=== PATIENT | female | born 1970 | race Caucasian/White ===

== ENCOUNTER 2018-04-20 11:03 | Emergency (ER) | payer SELFPAY ==
[2018-04-20 11:08] VITALS: BP 124/82
--- NOTE | 2018-04-20 11:49 | ER Document Report ---
ED Extremity Problem, Upper - General Chief Complaint: Shoulder Injury Stated Complaint: ARM PAIN Time Seen by Provider: 04/20/18 11:16 Mode of Arrival: Ambulatory Information source: Patient Notes: 47-year-old female presented to ED for complaint of left shoulder pain times 2 days. She states she was in the ER and she stepped in a hole on Tuesday and her son who is 19 years old fell on top of her. She states that the pain was so bad yesterday that every time she started to get up she would get lightheaded and dizzy and nauseated so she stayed in the bed and did not come to the doctor's office. She states today she is finally able to get up and move around she is no longer nauseated or dizzy but the pain is severe in her humerus. She is full range of motion to the shoulder as long as the arm is held and she has full range of motion to the elbow and hand as long as the arm is held. Patient is alert and oriented respirations regular and unlabored speaking in full sentences and is able to walk with a even steady gait. Patient states she took a half of 05/325 Percocet before coming to the emergency room. TRAVEL OUTSIDE OF THE [place] IN LAST 30 DAYS: No - HPI Patient complains to provider of: Left, Arm Onset: Other - Tuesday Recent injury: Yes Where: Home, Outdoors Quality of pain: Sharp, Stabbing Severity of pain: Severe Pain Level: 5 Associated symptoms: Other - Rib pain left humerus was making her nauseated and dizzy yesterday not today Exacerbated by: Movement, Exertion Relieved by: Nothing Similar symptoms previously: No Recently seen / treated by doctor: No - Related Data Allergies/Adverse Reactions: No Known Allergies Allergy (Verified 02/09/16 08:44) Past Medical History - General Information source: Patient - Social History Smoking Status: Current Every Day Smoker Cigarette use (# per day): Yes - 1/2 pack/day Chew tobacco use (# tins/day): No Smoking Education Provided: Yes - 4 minutes Frequency of alcohol use: Occasional Drug Abuse: None Lives with: Family Family History: Reviewed & Not Pertinent Patient has suicidal ideation: No Patient has homicidal ideation: No - Past Medical History Cardiac Medical History: Reports: Hx Hypercholesterolemia, Hx Hypertension Pulmonary Medical History: Reports: None EENT Medical History: Reports: None Neurological Medical History: Reports: None Endocrine Medical History: Reports: None Renal/ Medical History: Reports: Hx Ovarian Cysts Malignancy Medical History: Reports: Hx Cervical Cancer GI Medical History: Reports: None Musculoskeletal Medical History: Reports Hx Musculoskeletal Trauma Skin Medical History: Reports None Psychiatric Medical History: Reports: None Traumatic Medical History: Reports: None Infectious Medical History: Reports: None Past Surgical History: Reports: Hx Hysterectomy - Immunizations Hx Diphtheria, Pertussis, Tetanus Vaccination: Yes Review of Systems - Review of Systems Constitutional: No symptoms reported EENT: No symptoms reported Cardiovascular: No symptoms reported Respiratory: No symptoms reported Gastrointestinal: No symptoms reported Genitourinary: No symptoms reported Female Genitourinary: No symptoms reported Musculoskeletal: Other - Severe left humerus pain bruising swelling Skin: No symptoms reported Hematologic/Lymphatic: No symptoms reported Neurological/Psychological: No symptoms reported -: Yes All other systems reviewed and negative Physical Exam - Vital signs Vitals: Temp Pulse Resp BP Pulse Ox 98.7 F 103 H 14 124/82 95 04/20/18 11:07 04/20/18 11:07 04/20/18 11:07 04/20/18 11:07 04/20/18 11:07 Interpretation: Normal - General General appearance: Appears well, Alert - HEENT Head: Normocephalic, Atraumatic Eyes: Normal Pupils: PERRL - Respiratory Respiratory status: No respiratory distress Chest status: Tender - Left clavicle, Ecchymosis Breath sounds: Normal Chest palpation: Normal - Cardiovascular Rhythm: Regular Heart sounds: Normal auscultation Murmur: No - Abdominal Inspection: Normal Distension: No distension Bowel sounds: Normal Tenderness: Nontender Organomegaly: No organomegaly - Back Back: Normal, Nontender - Extremities General upper extremity: Normal ROM, Normal temperature General lower extremity: Normal inspection, Nontender, Normal color, Normal ROM, Normal temperature, Normal weight bearing. No: Deniz's sign Shoulder: Normal, Nontender Arm: Tender, Ecchymosis, Other - Swelling Elbow: Normal, Nontender Forearm: Normal, Nontender Wrist: Normal, Nontender Hand: Normal, Nontender - Neurological Neuro grossly intact: Yes Cognition: Normal Orientation: AAOx4 [place] Coma Scale Eye Opening: Spontaneous [place] Coma Scale Verbal: Oriented [place]ais[place] Coma Scale Motor: Obeys Commands Faisal Coma Scale Total: 15 Speech: Normal Motor strength normal: LUE, RUE, LLE, RLE Sensory: Normal - Psychological Associated symptoms: Normal affect, Normal mood - Skin Skin Temperature: Warm Skin Moisture: Dry Skin Color: Normal Course - Re-evaluation Re-evalutation: 04/20/18 12:[address] Hendricks concerning this fractured humerus. He stated the patient should be put in a shoulder immobilizer given pain medication call the office in the morning for a follow-up appointment. Patient was given instructions concerning shoulder immobilizer or narcotics and follow-up with orthopedics. She was also given instructions concerning ice and ibuprofen. Patient will be discharged home to follow-up as instructed. Patient states she is also going to follow-up with her primary doctor. - Vital Signs Vital signs: Temp Pulse Resp BP Pulse Ox 98.7 F 103 H 14 124/82 95 04/20/18 11:07 04/20/18 11:07 04/20/18 11:07 04/20/18 11:07 04/20/18 11:07 - Diagnostic Test Radiology reviewed: Image reviewed, Reports reviewed Procedures - Immobilization Left Shoulder Time completed: 11:45 Immobilizer type: Shoulder immobilizer - Changed to immobilizer at 1224, Sling Performed by: PCT Post-Proc Neuro Vasc Exam: Normal Alignment checked and good: Yes Discharge - Discharge Clinical Impression: Fracture of neck of left humerus Qualifiers: Encounter type: initial encounter Fracture type: closed Qualified Code(s): S42.212A - Unspecified displaced fracture of surgical neck of left humerus, initial encounter for closed fracture Fall Qualifiers: Encounter type: initial encounter Qualified Code(s): W19.XXXA - Unspecified fall, initial encounter Condition: Stable Disposition: HOME, SELF-CARE Additional Instructions: Fracture Proximal Humerus There is a fracture at the upper end of the humerus, near the shoulder joint. Your physician has assessed the fracture's severity and has determined that it will heal well without surgery or "setting." The typical shoulder fracture doesn't need a cast. It's best treated by binding the arm down with a special sling. Ice packs are used to reduce pain and swelling. After early healing has occurred, [id number] exercises are prescribed for the shoulder. Complete healing may take three to six weeks, depending on the age of the patient and the severity of the fracture. Call the doctor or return at once if the arm becomes numb, or if pain or swelling become severe. Shoulder immobilizer to be Used You are to use a shoulder immobilizer. This is to rest the area, and to prevent it from hanging downward. Use this sling for at least 48 hours (or longer if so instructed by the doctor). Some types of splints will break if not supported by the sling, so the Shoulder immobilizermust be used as long as the splint. Ice can be placed inside the Shoulder immobilizer over the injured area. Oral Narcotic Medication You have been given a prescription for pain control. This medication is a narcotic. It's best taken with food, as nausea can result if taken on an empty stomach. Don't operate machinery or drive within six hours of taking this medication. Do not combine this medicine with alcohol, or with any medication which can cause sedation (such as cold tablets or sleeping pills) unless you get permission from the physician. Narcotics tend to cause constipation. If possible, drink plenty of fluids and eat a diet high in fiber and fruits. Ice Packs Apply ice packs frequently against the painful area. Many different schedules are recommended, such as "20 minutes on, 20 minutes off" or "one hour ice, two hours rest." If you need to work, you may need to go longer between ice treatments. You should plan to have the area ice packed AT LEAST one fourth of the time. The ice should be applied over the wrap, tape, or splint, or over a layer of cloth -- not directly against the skin. Some ice bags have a built-in cloth and can be put directly on the skin. FOLLOW-UP CARE: If you have been referred to a physician for follow-up care, call the physicians office for an appointment as you were instructed or within the next two days. If you experience worsening or a significant change in your symptoms, notify the physician immediately or return to the Emergency Department at any time for re-evaluation. Prescriptions: Oxycodone HCl/Acetaminophen [Percocet 5-325 mg Tablet] 1 tab PO Q6HP PRN #15 tablet PRN Reason: Forms: Return to Work Referrals: KAMINI CARPOI MD [Primary Care Provider] - Follow up as needed ABHINAV PADRON MD [ACTIVE STAFF] - Follow up as needed
[2018-04-20] MEDS ORDERED: OXYCODONE-ACETAMINOPHEN 5-325 MG TABLET PO ONE (12:19)
--- NOTE | 2018-04-20 12:22 | RADIOLOGY REPORT (SQ) ---
EXAM DESCRIPTION: HUMERUS LEFT COMPLETED DATE/TIME: 04/20/2018 12:12 pm REASON FOR STUDY: fall pain COMPARISON: None. NUMBER OF VIEWS: Two views. TECHNIQUE: Two radiographic images were acquired of the left humerus to include elbow and shoulder i n at least one projection. LIMITATIONS: None. FINDINGS: MINERALIZATION: Normal. BONES: Mildly displaced and impacted fracture of the humeral neck. SOFT TISSUES: No obvious swelling or foreign body. OTHER: No other significant finding. IMPRESSION: FRACTURE OF THE HUMERAL NECK. TECHNICAL DOCUMENTATION: JOB ID: [id number] [employer]- All Rights Reserved Reading location - IP/workstation name: [email or web address]
--- NOTE | 2018-04-20 12:24 | RADIOLOGY REPORT (SQ) ---
EXAM DESCRIPTION: SHOULDER LEFT 2 OR MORE VIEWS COMPLETED DATE/TIME: 04/20/2018 12:13 pm REASON FOR STUDY: fall pain COMPARISON: None. NUMBER OF VIEWS: Two views. TECHNIQUE: Internal rotation and Y view images acquired of the left shoulder. LIMITATIONS: None. FINDINGS: MINERALIZATION: Normal. BONES: Comminuted impacted fracture of the humeral neck which probably involves the greater tuberosit y as well. No dislocation. JOINTS: No dislocation. VISUALIZED LUNGS AND RIBS: No pneumothorax. No rib fracture. SOFT TISSUES: No radiopaque foreign body. OTHER: No other significant finding. IMPRESSION: COMMINUTED IMPACTED FRACTURE OF THE HUMERAL NECK WHICH PROBABLY INVOLVES THE GREATER TUB EROSITY WELL. TECHNICAL DOCUMENTATION: JOB ID: [id number] [employer]- All Rights Reserved Reading location - IP/workstation name: [email or web address]
== END 2018-04-20 12:54 | disposition home or self-care (01) ==
LOC: ER 11:03
DX: S42.212A Unspecified displaced fracture of surgical neck of left humerus, initial encounter for closed fracture (principal); W17.2XXA Fall into hole, initial encounter; Y92.009 Unspecified place in unspecified non-institutional (private) residence as the place of occurrence of the external cause; F17.210 Nicotine dependence, cigarettes, uncomplicated
CPT/HCPCS: 99406; 99283; 73060; 73030; L3650

== ENCOUNTER 2019-04-16 13:22 | Emergency (ER) | payer SELFPAY ==
--- NOTE | 2019-04-16 16:28 | ER Document Report ---
ED Medical Screen (RME) - General Chief Complaint: Vaginal Discharge Stated Complaint: BLOODY STOOL Time Seen by Provider: 04/16/19 16:21 Primary Care Provider: KAMINI CARPIO MD [Primary Care Provider] - Follow up as needed Mode of Arrival: Ambulatory Information source: Patient Notes: 48-year-old female with history of vaginal cancer presents today with complaints of rectal bleeding for the past month with 2 large clots today. She also reports her vaginal area has been hurting for the past 3 to 4 months. Reports less radiation treatment was at the end of 2018. Reports she just followed up with her oncologist 3 to 4 months ago. No other complaints such as fever vomiting diarrhea. Reports she does have cold chills at times. I have greeted and performed a rapid initial assessment of this patient. A comprehensive ED assessment and evaluation of the patient, analysis of test results and completion of the medical decision making process will be conducted by additional ED providers. Dictation of this chart was performed using voice recognition software; therefore, there may be some unintended grammatical errors. TRAVEL OUTSIDE OF THE [place] IN LAST 30 DAYS: No - Related Data Allergies/Adverse Reactions: No Known Allergies Allergy (Verified 02/09/16 08:44) Past Medical History - Past Medical History Cardiac Medical History: Reports: Hx Hypercholesterolemia, Hx Hypertension Renal/ Medical History: Reports: Hx Ovarian Cysts. Denies: Hx Peritoneal Dialysis Malignancy Medical History: Reports: Hx Cervical Cancer Musculoskeltal Medical History: Reports Hx Musculoskeletal Trauma Past Surgical History: Reports: Hx Hysterectomy - Immunizations Hx Diphtheria, Pertussis, Tetanus Vaccination: Yes Physical Exam - Vital signs Vitals: Temp Pulse Resp BP Pulse Ox 98.3 F 92 16 142/83 H 97 04/16/19 13:40 04/16/19 13:40 04/16/19 13:40 04/16/19 13:40 04/16/19 13:40 Course - Vital Signs Vital signs: Temp Pulse Resp BP Pulse Ox 98.3 F 92 16 142/83 H 97 04/16/19 16:21 04/16/19 13:40 04/16/19 16:21 04/16/19 13:40 04/16/19 16:21 Doctor's Discharge - Discharge Referrals: KAMINI CARPIO MD [Primary Care Provider] - Follow up as needed
[2019-04-16 18:26] LABS: ABSOLUTE EOSINOPHILS # (AUTO) 0.1 10^3/uL (0.0-0.6); ABSOLUTE MONOCYTES (AUTO) 0.5 10^3/uL (0.1-1.4); ABSOLUTE NEUT (AUTO) 6.6 10^3/uL (1.7-8.2); BASOPHILS % (AUTO) 0.5 % (0-2); EOSINOPHILS % (AUTO) 0.9 % (0-6); HEMATOCRIT 39.4 % (36.0-47.0); HEMOGLOBIN 13.7 g/dL (12.0-15.5); MEAN CORPUSCULAR HGB CONC 34.8 g/dL (32.0-36.0); MEAN CORPUSCULAR VOLUME 98 fl (80-97); MONOCYTES % (AUTO) 5.7 % (3-13); PLATELET COUNT 326 10^3/uL (150-450); RED BLOOD COUNT 4.03 10^6/uL (3.72-5.28); RED CELL DISTRIBUTION WIDTH 13.8 % (11.5-14.0); SEGMENTED NEUTROPHILS % (AUTO) 80.9 % (42-78); TOTAL CELLS COUNTED % (AUTO) 100 %; WHITE BLOOD COUNT 8.2 10^3/uL (4.0-10.5)
[2019-04-16 18:32] LABS: APPEARANCE,URINE CLEAR; BILIRUBIN,URINE NEGATIVE (NEGATIVE); COLOR,URINE YELLOW; GLUCOSE, URINE NEGATIVE (NEGATIVE); KETONES,URINE 20 mg/dL (NEGATIVE); LEUKOCYTE ESTERASE,URINE MODERATE (NEGATIVE); NITRITE,URINE NEGATIVE (NEGATIVE); PROTEIN,URINE NEGATIVE (NEGATIVE); URINE SPECIFIC GRAVITY 1.008; UROBILINOGEN,URINE NEGATIVE mg/dL (<2.0)
[2019-04-16 18:51] LABS: ALBUMIN 4.6 g/dL (3.5-5.0); ALKALINE PHOSPHATASE 130 U/L (38-126); ANION GAP 13 (5-19); ASPARTATE AMINO TRANSFERASE 27 U/L (14-36); BILIRUBIN,DIRECT 0.3 mg/dL (0.0-0.4); BILIRUBIN,TOTAL 0.6 mg/dL (0.2-1.3); BLOOD UREA NITROGEN 9 mg/dL (7-20); CALCIUM 9.8 mg/dL (8.4-10.2); CARBON DIOXIDE 30 mmol/L (22-30); CHLORIDE 98 mmol/L (98-107); GLUCOSE 79 mg/dL (75-110); POTASSIUM 4.1 mmol/L (3.6-5.0); TOTAL PROTEIN 7.7 g/dL (6.3-8.2)
[2019-04-16 21:13] VITALS: BP 141/89
--- NOTE | 2019-04-16 21:18 | ER Document Report ---
ED GI Bleed / Rectal Pain - General Chief Complaint: Vaginal Discharge Stated Complaint: BLOODY STOOL Time Seen by Provider: 04/16/19 16:21 Primary Care Provider: KAMINI CARPIO MD [Primary Care Provider] - Follow up as needed Mode of Arrival: Ambulatory Notes: 48-year-old woman presents to the emergency department with episode of in her stools. She had one episode early this morning and a second episode which followed when she went to the bathroom. She described a trickle of blood and during the second episode 2 tiny clots. Denies pain in the rectal area. She has had chemo and radiation for vaginal related neoplastic illness. States that she has been in remission for approximately 1 year. She denies dizziness lightheadedness or tachycardia. She has been in the emergency department for approximately 7 hours and has had no further episodes of bleeding. TRAVEL OUTSIDE OF THE [place] IN LAST 30 DAYS: No - Related Data Allergies/Adverse Reactions: No Known Allergies Allergy (Verified 02/09/16 08:44) Past Medical History - General Information source: Patient - Social History Smoking Status: Unknown if Ever Smoked Family History: Reviewed & Not Pertinent Patient has suicidal ideation: No Patient has homicidal ideation: No - Past Medical History Cardiac Medical History: Reports: Hx Hypercholesterolemia, Hx Hypertension Renal/ Medical History: Reports: Hx Ovarian Cysts. Denies: Hx Peritoneal Dialysis Malignancy Medical History: Reports: Hx Cervical Cancer Musculoskeletal Medical History: Reports Hx Musculoskeletal Trauma Past Surgical History: Reports: Hx Hysterectomy - Immunizations Hx Diphtheria, Pertussis, Tetanus Vaccination: Yes Review of Systems - Review of Systems Notes: Constitutional: Negative for fever. HENT: Negative for sore throat. Eyes: Negative for visual changes. Cardiovascular: Negative for chest pain. Respiratory: Negative for shortness of breath. Gastrointestinal: + Rectal bleeding, no abdominal pain Genitourinary: Negative for dysuria. Musculoskeletal: Negative for back pain. Skin: Negative for rash. Neurological: Negative for headaches, weakness or numbness. 10 point ROS negative except as marked above and in HPI. Physical Exam - Vital signs Vitals: Temp Pulse Resp BP Pulse Ox 98.3 F 92 16 142/83 H 97 04/16/19 13:40 04/16/19 13:40 04/16/19 13:40 04/16/19 13:40 04/16/19 13:40 - Notes Notes: PHYSICAL EXAMINATION: Physical Exam: General: Well-nourished well-developed in no acute distress HEENT: NC/AT, pupils equal round and reactive to light, MM moist,nares clear, Neck: supple, no adenopathy, no masses. Lungs: clear, no wheezing, no rales no rhonchi CVS: Regular rate and rhythm no murmur gallop or rub Abdomen: Soft active nontender, no masses, no hepatosplenomegaly Rectal: + External hemorrhoid at the 12:00 . Base of the hemorrhoid which is clotted blood. No active hemorrhaging. Ext: No edema clubbing or cyanosis. Neuro: Alert and responsive, moving all 4 extremities on command, cranial nerves intact. Skin: Intact no open lesions, no rash PSYCH: Normal mood, normal affect. Course - Re-evaluation Re-evalutation: 04/16/19 21:16 Rectal bleeding, likely source hemorrhoidal, 48-year-old woman, history of ra diation and chemotherapy. I have suggested that she follow-up with her primary care doctor for GI referral. Hemodynamically stable and H&H is stable. Urine reveals significant pyuria she is given a prescription for Macrobid. Patient will follow-up with her primary care doctor and she acknowledges an understanding of that plan and is in agreement. - Vital Signs Vital signs: Temp Pulse Resp BP Pulse Ox 98.3 F 92 16 142/83 H 97 04/16/19 16:21 04/16/19 13:40 04/16/19 16:21 04/16/19 13:40 04/16/19 16:21 - Laboratory Result Diagrams: 04/16/19 17:10 04/16/19 17:10 Laboratory results interpreted by me: 04/16/19 04/16/19 04/16/19 17:10 17:10 17:10 MCV 98 H MCH 34.0 H Lymph % (Auto) 12.0 L Seg Neutrophils % 80.9 H Creatinine 0.48 L Alkaline Phosphatase 130 H Urine Ketones 20 H Ur Leukocyte Esterase MODERATE H Discharge - Discharge Clinical Impression: Rectal bleeding, Urinary tract infection Condition: Good Disposition: HOME, SELF-CARE Instructions: Nitrofurantoin ([facility]), Urinary Tract Infection ([facility]), Rectal Bleeding, Unclear Cause ([facility]), Urinary Tract Infection, Child ([facility]) Referrals: KAMINI CARPIO MD [Primary Care Provider] - Follow up as needed
== END 2019-04-16 21:23 | disposition home or self-care (01) ==
LOC: ER 13:22
DX: K62.5 Hemorrhage of anus and rectum (principal); K64.4 Residual hemorrhoidal skin tags; N39.0 Urinary tract infection, site not specified; I10 Essential (primary) hypertension; Z92.3 Personal history of irradiation; Z92.21 Personal history of antineoplastic chemotherapy; Z85.41 Personal history of malignant neoplasm of cervix uteri
CPT/HCPCS: 36415; 80053; 81001; 85025; 99284

== ENCOUNTER 2019-07-27 14:15 | Emergency (ER) | payer SELFPAY ==
[2019-07-27] MEDS ORDERED: NORMAL SALINE 1000 ML 1,000 ML IV ONE (14:32)
--- NOTE | 2019-07-27 14:33 | ER Document Report ---
ED Medical Screen (RME) - General Chief Complaint: Vaginal Discharge Stated Complaint: VAGINAL DISCHARGE Time Seen by Provider: 07/27/19 14:23 Primary Care Provider: KAMINI CARPIO MD [Primary Care Provider] - Follow up as needed Information source: Patient Notes: Patient presents complaining of diarrhea in which she is having stool from both the rectum and the vaginal area. Patient denies any abdominal tenderness or back pain. Patient denies any dysuria symptoms. Patient does report a previous history of vaginal cancer that was treated with chemotherapy and radiation treatment 2 years ago. I have greeted and performed a rapid initial assessment of this patient. A comprehensive ED assessment and evaluation of the patient, analysis of test results and completion of the medical decision making process will be conducted by additional ED providers. TRAVEL OUTSIDE OF THE [place] IN LAST 30 DAYS: No - Related Data Allergies/Adverse Reactions: No Known Allergies Allergy (Verified 02/09/16 08:44) Past Medical History - Past Medical History Cardiac Medical History: Reports: Hx Hypercholesterolemia, Hx Hypertension Renal/ Medical History: Reports: Hx Ovarian Cysts. Denies: Hx Peritoneal Dialysis Malignancy Medical History: Reports: Hx Cervical Cancer Musculoskeltal Medical History: Reports Hx Musculoskeletal Trauma Past Surgical History: Reports: Hx Hysterectomy - Immunizations Hx Diphtheria, Pertussis, Tetanus Vaccination: Yes Physical Exam - Vital signs Vitals: Temp Pulse Resp BP Pulse Ox 98.1 F 106 H 18 134/92 H 97 07/27/19 14:16 07/27/19 14:16 07/27/19 14:16 07/27/19 14:16 07/27/19 14:16 - General General appearance: Appears well, Alert In distress: None Course - Vital Signs Vital signs: Temp Pulse Resp BP Pulse Ox 98.1 F 106 H 18 134/92 H 97 07/27/19 14:16 07/27/19 14:16 07/27/19 14:16 07/27/19 14:16 07/27/19 14:16 Doctor's Discharge - Discharge Referrals: KAMINI CARPIO MD [Primary Care Provider] - Follow up as needed
[2019-07-27 15:16] LABS: ABSOLUTE BASOPHILS # (AUTO) 0.1 10^3/uL (0.0-0.2); ABSOLUTE EOSINOPHILS # (AUTO) 0.1 10^3/uL (0.0-0.6); ABSOLUTE MONOCYTES (AUTO) 0.6 10^3/uL (0.1-1.4); ABSOLUTE NEUT (AUTO) 8.4 10^3/uL (1.7-8.2); BASOPHILS % (AUTO) 0.6 % (0-2); EOSINOPHILS % (AUTO) 0.9 % (0-6); HEMATOCRIT 43.5 % (36.0-47.0); HEMOGLOBIN 15.6 g/dL (12.0-15.5); MEAN CORPUSCULAR HEMOGLOBIN 34.8 pg (27.0-33.4); MEAN CORPUSCULAR HGB CONC 35.9 g/dL (32.0-36.0); MEAN CORPUSCULAR VOLUME 97 fl (80-97); MONOCYTES % (AUTO) 6.1 % (3-13); PLATELET COUNT 356 10^3/uL (150-450); RED CELL DISTRIBUTION WIDTH 13.7 % (11.5-14.0); SEGMENTED NEUTROPHILS % (AUTO) 82.4 % (42-78); TOTAL CELLS COUNTED % (AUTO) 100 %; WHITE BLOOD COUNT 10.2 10^3/uL (4.0-10.5)
[2019-07-27 15:31] LABS: ANION GAP 10 (5-19); BLOOD UREA NITROGEN 10 mg/dL (7-20); CALCIUM 10.6 mg/dL (8.4-10.2); CARBON DIOXIDE 32 mmol/L (22-30); CHLORIDE 94 mmol/L (98-107); GLUCOSE 134 mg/dL (75-110); POTASSIUM 4.2 mmol/L (3.6-5.0)
--- NOTE | 2019-07-27 16:27 | ER Document Report ---
ED General - General Chief Complaint: Vaginal Discharge Stated Complaint: VAGINAL DISCHARGE Time Seen by Provider: 07/27/19 14:23 Primary Care Provider: KAMINI CARPIO MD [Primary Care Provider] - Follow up as needed TRAVEL OUTSIDE OF THE [place] IN LAST 30 DAYS: No - HPI Notes: Patient is a 49-year-old female with a history of vaginal cancer who presents to the emergency department for evaluation of possible stool passing from her vagina. Patient has had chronic pelvic pain for about the last 6 months. This is been since being in remission from vaginal cancer. She has been in remission since December 2018. She did undergo chemotherapy as well as radiation. Patie nt states she has had pain in her tailbone and pelvic area, as well as intermittent diarrhea/constipation. She was seen with some blood in her stool, referred on to gastroenterology. As she is self-pay, they have deferred colonoscopy. She has been treating her intermittent constipation with MiraLAX and Citracal. Patient states that over the last week she noticed some brown discharge after urinating. She thought it could perhaps be old blood. She states yesterday she passed more when she had a bowel movement, believes that she started having fecal material coming from both her vagina as well as her rectum. She has follow-up with her dielectric tester in [place] on Tuesday, as well as with gastroenterology on Tuesday, but she became more concerned, so she presents to the ER for further evaluation. She denies any fevers or chills. No nausea or vomiting. - Related Data Allergies/Adverse Reactions: No Known Allergies Allergy (Verified 02/09/16 08:44) Past Medical History - General Information source: Patient - Social History Smoking Status: Current Every Day Smoker Family History: Reviewed & Not Pertinent Patient has suicidal ideation: No Patient has homicidal ideation: No - Past Medical History Cardiac Medical History: Reports: Hx Hypercholesterolemia, Hx Hypertension Renal/ Medical History: Reports: Hx Ovarian Cysts. Denies: Hx Peritoneal Dialysis Malignancy Medical History: Reports: Other - Vaginal cancer Musculoskeletal Medical History: Reports Hx Musculoskeletal Trauma Past Surgical History: Reports: Hx Hysterectomy - Immunizations Hx Diphtheria, Pertussis, Tetanus Vaccination: Yes Review of Systems - Review of Systems Gastrointestinal: See HPI Female Genitourinary: See HPI -: Yes All other systems reviewed and negative Physical Exam - Vital signs Vitals: Temp Pulse Resp BP Pulse Ox 98.1 F 106 H 18 134/92 H 97 07/27/19 14:16 07/27/19 14:16 07/27/19 14:16 07/27/19 14:16 07/27/19 14:16 - Notes Notes: Vital signs reviewed, please refer to chart. Head is normocephalic, atraumatic. Pupils equal round, reactive to light. Neck is supple without meningismus. Heart is regular rate and rhythm. Lungs are clear to auscultation bilaterally. Abdomen is soft, nontender, normoactive bowel sounds throughout. Extremities without cyanosis, clubbing. Posterior calves are nontender. Peripheral pulses are equal. Skin is warm and dry. Patient is awake, alert, neurological exam is nonfocal. Course - Re-evaluation Re-evalutation: 07/27/19 16:26 Patient presents emergency department for evaluation. She is concerned she may be passing stool through her vaginal opening. I am concerned about a possibility of a rectovaginal fistula given her symptoms. Laboratory investigations were ordered, I have also ordered a CT of the abdomen pelvis to evaluate. Patient is stable, we will continue to monitor. 07/27/19 20:48 Patient started complaining of some pain from wiping. She states she has passed more stool through her vagina. She asks for Tylenol, this is ordered. Her CT scan does not fact reveal contrast in the vagina. I am concerned about the possibility of a colovaginal fistula. Patient sees the gynecology/oncology service from [facility]. Awaiting phone call to discuss findings. 07/27/19 21:58 CT scan showed findings consistent with likely fistula. Patient was notified of this finding. I did eventually speak to Dr. Torres, of gynecology oncology, with whom the patient actually has an appointment on Tuesday. He states that no further intervention is required at this time. He agrees that a barrier cream to help with her external irritation might be helpful. This was explained to the patient. He will talk to her further about her surgical options on Tuesday. Otherwise, she is to return to the ER with worsening or new concerning symptoms of any sort. - Vital Signs Vital signs: Temp Pulse Resp BP Pulse Ox 98.2 F 67 18 126/62 H 100 07/27/19 22:20 07/27/19 22:20 07/27/19 22:20 07/27/19 22:20 07/27/19 22:20 - Laboratory Result Diagrams: 07/27/19 14:39 07/27/19 14:39 Laboratory results interpreted by me: 07/27/19 07/27/19 07/27/19 14:39 14:39 17:35 Hgb 15.6 H MCH 34.8 H Lymph % (Auto) 10.0 L Absolute Neuts (auto) 8.4 H Seg Neutrophils % 82.4 H Sodium 136.3 L Chloride 94 L Carbon Dioxide 32 H Creatinine 0.45 L Glucose 134 H Calcium 10.6 H Urine Blood SMALL H Ur Leukocyte Esterase SMALL H - Diagnostic Test Radiology reviewed: Reports reviewed Radiology results interpreted by me: 07/27/19 20:49 Abdomen/Pelvis CT 07/27/19 16:02 IMPRESSION: Small amount contrast identified within the vagina. Both oral and intravascular contrast was administered. Presumably, this vaginal contrast is from enteric administration. There is associated inflammatory change of the rectum. A colovaginal fistula although not directly seen is suspected. Discharge - Discharge Clinical Impression: Colovaginal fistula Condition: Stable Disposition: HOME, SELF-CARE Additional Instructions: Your findings today are most consistent with a fistula, or a small tract between your intestine and your vagina. Continue to keep the area as clean as possible, use barrier cream to minimize irritation as discussed. Keep your appointment with Dr. Torres on Tuesday in [place]. If you develop fevers, vomiting, or any other new or concerning symptoms, please return immediately to the emergency department for reevaluation. Referrals: KAMINI CARPIO MD [Primary Care Provider] - Follow up as needed
[2019-07-27 17:55] LABS: APPEARANCE,URINE CLEAR; BILIRUBIN,URINE NEGATIVE (NEGATIVE); COLOR,URINE STRAW; GLUCOSE, URINE NEGATIVE (NEGATIVE); KETONES,URINE NEGATIVE (NEGATIVE); LEUKOCYTE ESTERASE,URINE SMALL (NEGATIVE); NITRITE,URINE NEGATIVE (NEGATIVE); PROTEIN,URINE NEGATIVE (NEGATIVE); URINE SPECIFIC GRAVITY 1.005; UROBILINOGEN,URINE NEGATIVE mg/dL (<2.0)
--- NOTE | 2019-07-27 20:21 | RADIOLOGY REPORT (SQ) ---
CLINICAL INDICATION: vaginal ca hx, eval for colovaginal fistula. . TECHNIQUE: Contrast enhanced spiral axial CT imaging was obtained of the abdomen and pelvis with multiplanar reconstructions. This exam was performed according to our departmental dose-optimization program, which includes automated exposure control, adjustment of the mA and/or kV according to patient size and/or use of iterative reconstruction techniques. Additional delayed phase imaging COMPARISON: None. CORRELATION: None. FINDINGS: Abdomen: The lung bases are grossly clear. The heart is of normal size. No evidence of pleural or pericardial fluid. The liver is of normal size contour and attenuation. The gallbladder is nondistended without inflammatory change. The pancreas is unremarkable. The spleen is unremarkable. The adrenals are unremarkable. The kidneys appear grossly normal without evidence of urolithiasis or hydronephrosis. There is no evidence of free air. No free fluid. No bulky adenopathy. Abdominal aorta is nonaneurysmal. Pelvis: The bowel is nonobstructed. The bowel is unopacified with oral contrast. Pelvic contents demonstrates trace contrast within the vagina, presumably from the colon. The colovaginal fistula is not directly seen but is suspected.. The appendix is not seen. There appears to be thickening of the rectum. Mild perirectal stranding. Visualized bones demonstrate tiny sclerotic focus left ilium, indeterminate. IMPRESSION: Small amount contrast identified within the vagina. Both oral and intravascular contrast was administered. Presumably, this vaginal contrast is from enteric administration. There is associated inflammatory change of the rectum. A colovaginal fistula although not directly seen is suspected.
[2019-07-27] MEDS ORDERED: ACETAMINOPHEN 325 MG TABLET PO ONE (20:44)
[2019-07-27 22:31] VITALS: BP 126/62
== END 2019-07-27 22:20 | disposition home or self-care (01) ==
LOC: ER 14:15
DX: N82.3 Fistula of vagina to large intestine (principal); K59.00 Constipation, unspecified; R10.2 Pelvic and perineal pain; M53.3 Sacrococcygeal disorders, not elsewhere classified; F17.200 Nicotine dependence, unspecified, uncomplicated; I10 Essential (primary) hypertension; Z85.44 Personal history of malignant neoplasm of other female genital organs; Z92.21 Personal history of antineoplastic chemotherapy; Z87.59 Personal history of other complications of pregnancy, childbirth and the puerperium
CPT/HCPCS: 99284; 96360; 96361; 36415; 85025; 80048; 81001; 74177; J7030